=== PATIENT | male | born 1955 | race Caucasian/White ===

== ENCOUNTER 2017-01-19 07:13 | Inpatient (IN) | payer BC, OTHER ==
[~2017-01-19] VITALS: Ht 195.6 cm; Wt 103.9 kg
[2017-01-19 07:15] VITALS: BP_SYST 148
[2017-01-19 07:43] LABS: BASOPHILS # (AUTO) 0.1 K/uL (0.0-0.2); EOSINOPHILS # (AUTO) 0.2 K/uL (0.0-0.4); MEAN CORPUSCULAR HGB CONC 32 % (32-36); MONOCYTES # (AUTO) 0.8 K/uL (0.0-1.0)
[2017-01-19] MEDS ORDERED: ASPIRIN 81 MG TAB.CHEW PO ONE (07:45)
[2017-01-19 07:48] LABS: BASOPHILS % (AUTO) 0.6 % (0.0-2.0); HEMATOCRIT 46.2 % (36-54); HEMOGLOBIN 14.9 g/dL (14.0-18.0); LYMPHOCYTES # (AUTO) 2.7 K/uL (1.0-5.5); LYMPHOCYTES % (AUTO) 26.7 % (20.5-51.5); MEAN CORPUSCULAR HEMOGLOBIN 28 pg (27-31); MEAN CORPUSCULAR VOLUME 87 fL (79.0-98.0); MONOCYTES % (AUTO) 8.1 % (1.7-9.3); NEUTROPHILS # (AUTO) 6.2 K/uL (1.8-7.7); NEUTROPHILS % (AUTO) 62.6 % (40.0-70.0); PLATELET COUNT (AUTO) 249 K/uL (130-430); RED BLOOD CELL COUNT(AUTO) 5.31 MIL/uL (4.2-6.2); RED CELL DISTRIBUTION WIDTH 13.7 % (9.0-15.0)
[2017-01-19 07:49] LABS: ANION GAP 6 (5-15); CALCIUM 9.4 mg/dL (8.4-11.0); CHLORIDE 106 mmol/L (98-107); CREATININE 1.13 mg/dL (0.55-1.30); GLUCOSE 125 mg/dL (70-99); POTASSIUM 4.4 mmol/L (3.5-5.1); SODIUM SERUM 142 mmol/L (136-145); UREA NITROGEN, BLOOD 19 mg/dL (8-21)
[2017-01-19 07:50] LABS: GFR AFRICAN AMERICAN 84 mL/min (>90)
[2017-01-19 07:51] LABS: PROTHROMBIN TIME 10.9 SECS (9.5-12.5)
[2017-01-19 07:57] LABS: ALANINE AMINOTRANSFERASE 20 U/L (12-78); ALBUMIN 4.2 g/dL (3.4-4.8); ASPARTATE AMINOTRANSFERASE 18 U/L (10-37)
[2017-01-19] MEDS ORDERED: LORA-843 PO (09:19)
[2017-01-19] MEDS ORDERED: GLU500 PO (09:19)
[2017-01-19] MEDS ORDERED: ATEN50TA PO (09:19)
[2017-01-19 09:38] VITALS: BP_SYST 113
[2017-01-19 09:40] VITALS: BP_SYST 113
[2017-01-19] MEDS ORDERED: ASPIRIN 325 MG TABLET (ECOTRIN) PO ONE (10:45)
[2017-01-19] MEDS ORDERED: DEXTROSE 50% JECT 50 ML DISP.SYRIN IVP PRN (10:45)
[2017-01-19] MEDS ORDERED: ATENOLOL 50 MG TABLET (TENORMIN) PO SCH (10:45)
[2017-01-19] MEDS ORDERED: ATENOLOL 50 MG TABLET (TENORMIN) PO ONE (10:45)
[2017-01-19] MEDS ORDERED: INSULIN REGULAR, HUMAN 100 UNITS/ML, 10 ML VIAL (novoLIN R) SUBCUT PRN (10:45)
[2017-01-19] MEDS ORDERED: ASPIRIN 325 MG TABLET (ECOTRIN) PO SCH (10:45)
[2017-01-19 11:29] LABS: CHOLESTEROL 149 mg/dL (<200); HDL CHOLESTEROL 35 mg/dL (>45); LDL CHOLESTEROL 99 mg/dL (<100); TRIGLYCERIDES 106 mg/dL (30-150)
[2017-01-19 16:33] VITALS: BP_SYST 132
[2017-01-19 19:42] VITALS: BP_SYST 125
[2017-01-19 23:33] VITALS: BP_SYST 138
[2017-01-20 03:33] VITALS: BP_SYST 135
[2017-01-20 08:00] VITALS: BP_SYST 140
[2017-01-20] MEDS ORDERED: metFORMIN HCL 500 MG TABLET PO SCH (09:00)
[2017-01-20] MEDS ORDERED: ASPIRIN 325 MG TABLET (ECOTRIN) PO SCH (09:00)
[2017-01-20] MEDS ORDERED: ATENOLOL 50 MG TABLET (TENORMIN) PO SCH (09:00)
[2017-01-20 11:56] VITALS: BP_SYST 140
== END 2017-01-20 12:20 | disposition home or self-care (01) | DRG 392 ==
LOC: SED 07:13 → STU 09:08
PROVIDERS: ADMIT Internal Medicine Hospice and Palliative Medicine; ATTEND Internal Medicine Hospice and Palliative Medicine
DX: K21.9 Gastro-esophageal reflux disease without esophagitis (principal); I10 Essential (primary) hypertension; F17.200 Nicotine dependence, unspecified, uncomplicated; E11.9 Type 2 diabetes mellitus without complications; Z82.49 Family history of ischemic heart disease and other diseases of the circulatory system
CPT/HCPCS: 36415; 71010; 80053; 80061; 82962; 83036; 83880; 84484; 85025; 85379; 85610-TC; 93005; 99285; J1815

== ENCOUNTER 2018-08-07 10:51 | Emergency (ER) | payer OTHER ==
[~2018-08-07] VITALS: Ht 195.6 cm; Wt 102.5 kg
[~2018-08-07 10:51] MED LIST: ATEN50TA PO; GLU500 PO; LORA-843 PO
[2018-08-07 11:07] VITALS: BP_SYST 155
[2018-08-07] MEDS ORDERED: NACL 0.9% 1,000 ML IV ONE (11:12)
[2018-08-07] MEDS: ONDANSETRON HCL 4 MG/2 ML VIAL IVP ONE ×2 (11:31→11:38)
[2018-08-07] MEDS: MORPHINE 4 MG/ML INJ. SYRINGE IVP ONE ×2 (11:32→11:39)
[2018-08-07 11:52] LABS: BILIRUBIN,URINE NEGATIVE (NEGATIVE); BLOOD, URINE NEGATIVE (NEGATIVE); CLARITY/URINE CLEAR (CLEAR); COLOR,URINE YELLOW (YELLOW); GLUCOSE,URINE NEGATIVE (NEGATIVE); KETONES,URINE NEGATIVE (NEGATIVE); LEUKOCYTE ESTERASE ,URINE NEGATIVE (NEGATIVE); NITRITE, URINE NEGATIVE (NEGATIVE); PROTEIN URINE NEGATIVE (NEGATIVE); UROBILINOGEN,URINE 0.2 (0.2-1.0)
[2018-08-07 11:58] LABS: HEMATOCRIT 43.9 % (36-54); HEMOGLOBIN 14.4 g/dL (14.0-18.0); RED BLOOD CELL COUNT(AUTO) 4.83 MIL/uL (4.2-6.2); WHITE BLOOD COUNT (AUTO) 8.9 K/uL (4.8-10.8)
[2018-08-07 11:59] LABS: BASOPHILS % (AUTO) 0.6 % (0.0-2.0); EOSINOPHILS # (AUTO) 0.2 K/uL (0.0-0.4); EOSINOPHILS % (AUTO) 2.6 % (0.0-4.0); LYMPHOCYTES # (AUTO) 2.8 K/uL (1.0-5.5); LYMPHOCYTES % (AUTO) 31.8 % (20.5-51.5); MEAN CORPUSCULAR HEMOGLOBIN 30 pg (27-31); MEAN CORPUSCULAR HGB CONC 33 % (32-36); MEAN CORPUSCULAR VOLUME 91 fL (79.0-98.0); MONOCYTES # (AUTO) 0.7 K/uL (0.0-1.0); MONOCYTES % (AUTO) 7.6 % (1.7-9.3); NEUTROPHILS # (AUTO) 5.1 K/uL (1.8-7.7); NEUTROPHILS % (AUTO) 57.4 % (40.0-70.0); PLATELET COUNT (AUTO) 225 K/uL (130-430)
[2018-08-07 12:04] LABS: PROTHROMBIN TIME 10.4 SECS (9.5-12.5)
[2018-08-07 12:09] LABS: POTASSIUM 3.8 mmol/L (3.5-5.1)
[2018-08-07 12:10] LABS: CALCIUM 9.1 mg/dL (8.4-11.0); CREATININE 1.03 mg/dL (0.55-1.30)
[2018-08-07 12:15] LABS: TOTAL BILIRUBIN 0.7 mg/dL (0.0-1.0)
[2018-08-07 14:30] VITALS: BP_SYST 155
== END 2018-08-07 19:00 | disposition home or self-care (01) ==
LOC: SED 10:51
DX: K42.9 Umbilical hernia without obstruction or gangrene (principal); E11.9 Type 2 diabetes mellitus without complications; R03.0 Elevated blood-pressure reading, without diagnosis of hypertension; Z79.899 Other long term (current) drug therapy
CPT/HCPCS: 36415; 71045; 74176; 80053; 81003; 82150; 82550; 83605; 84484; 83690; 85025; 85610; 85730; 87040; 93005; 99284; J2270; J2405; J7030

== ENCOUNTER 2018-09-10 10:01 | Emergency (ER) | payer OTHER ==
[~2018-09-10] VITALS: Ht 198.1 cm; Wt 104.3 kg
[2018-09-10 10:06] VITALS: BP_SYST 150
[2018-09-10 10:53] LABS: BASOPHILS # (AUTO) 0.1 K/uL (0.0-0.2); BASOPHILS % (AUTO) 0.9 % (0.0-2.0); EOSINOPHILS # (AUTO) 0.2 K/uL (0.0-0.4); EOSINOPHILS % (AUTO) 2.1 % (0.0-4.0); HEMATOCRIT 44.2 % (36-54); HEMOGLOBIN 14.5 g/dL (14.0-18.0); LYMPHOCYTES # (AUTO) 2.7 K/uL (1.0-5.5); LYMPHOCYTES % (AUTO) 33.1 % (20.5-51.5); MEAN CORPUSCULAR HEMOGLOBIN 30 pg (27-31); MEAN CORPUSCULAR HGB CONC 33 % (32-36); MEAN CORPUSCULAR VOLUME 91 fL (79.0-98.0); MONOCYTES # (AUTO) 0.7 K/uL (0.0-1.0); MONOCYTES % (AUTO) 8.9 % (1.7-9.3); NEUTROPHILS # (AUTO) 4.5 K/uL (1.8-7.7); PLATELET COUNT (AUTO) 233 K/uL (130-430); RED BLOOD CELL COUNT(AUTO) 4.84 MIL/uL (4.2-6.2); RED CELL DISTRIBUTION WIDTH 13.9 % (9.0-15.0); WHITE BLOOD COUNT (AUTO) 8.2 K/uL (4.8-10.8)
[2018-09-10 11:04] LABS: CALCIUM 9.4 mg/dL (8.4-11.0); POTASSIUM 4.2 mmol/L (3.5-5.1)
[2018-09-10 11:08] LABS: PROTHROMBIN TIME 10.5 SECS (9.5-12.5)
[2018-09-10 11:09] LABS: ALBUMIN 3.9 g/dL (3.4-4.8); TOTAL BILIRUBIN 1.4 mg/dL (0.0-1.0)
[2018-09-10 11:30] VITALS: BP_SYST 120
== END 2018-09-10 11:30 | disposition home or self-care (01) ==
LOC: SED 10:01
DX: S56.912A Strain of unspecified muscles, fascia and tendons at forearm level, left arm, initial encounter (principal); R03.0 Elevated blood-pressure reading, without diagnosis of hypertension; E11.9 Type 2 diabetes mellitus without complications; Z86.79 Personal history of other diseases of the circulatory system; Z79.899 Other long term (current) drug therapy; X50.0XXA Overexertion from strenuous movement or load, initial encounter; Y93.89 Activity, other specified; Y92.89 Other specified places as the place of occurrence of the external cause; Y99.8 Other external cause status
CPT/HCPCS: 36415; 71045; 80053; 82550-TC; 84484; 85025; 85610-TC; 85730-TC; 93005; 99284

== ENCOUNTER 2018-09-11 21:03 | Emergency (ER) | payer OTHER ==
[~2018-09-11] VITALS: Ht 165.1 cm; Wt 104.3 kg
[2018-09-11 21:05] VITALS: BP_SYST 159
--- NOTE | 2018-09-11 21:05 | NUR ---
Placed in room 1 . Placed on quality assurance monitor body, blood pressure machine and pulse oximeter. To gown for exam. Side rails up. Report given to GLENDA TAVAREZ.
--- NOTE | 2018-09-11 21:05 | NUR ---
Pt c/o C/P with nausea, dizziness and racind heart while he was playing "Tug-of-war" with his dog. Pt presently denies C/P or SOB, no dizziness or nausa. Pt states that he was recently dx with a clogged artery and is scheduled for a stent placement with [facility] on 09/15/2018.
[2018-09-11] MEDS ORDERED: NACL 0.9% 1,000 ML IV ONE (21:07)
--- NOTE | 2018-09-11 21:10 | NUR ---
Note undone in EDM - 09/11/18 at 2211 by [email or web address] # 18 gauge angiocath placed to rt ac. Use of asceptic technique. Opsite placed over site. Blood return noted. Blood for lab drawn from site. Flushed with 10 cc of normal saline. No evidence of infiltration noted. Patient tolerated well.
[2018-09-11] MEDS ORDERED: ASPIRIN 81 MG TAB.CHEW PO ONE (21:15)
--- NOTE | 2018-09-11 21:19 | NUR ---
ER at bedside examining patient.
[2018-09-11 21:22] LABS: BASOPHILS # (AUTO) 0.1 K/uL (0.0-0.2); BASOPHILS % (AUTO) 1.1 % (0.0-2.0); EOSINOPHILS # (AUTO) 0.2 K/uL (0.0-0.4); HEMATOCRIT 42.9 % (36-54); HEMOGLOBIN 14.3 g/dL (14.0-18.0); LYMPHOCYTES # (AUTO) 3.8 K/uL (1.0-5.5); MEAN CORPUSCULAR HEMOGLOBIN 30 pg (27-31); MEAN CORPUSCULAR HGB CONC 33 % (32-36); MEAN CORPUSCULAR VOLUME 91 fL (79.0-98.0); MONOCYTES # (AUTO) 1.1 K/uL (0.0-1.0); MONOCYTES % (AUTO) 8.8 % (1.7-9.3); NEUTROPHILS # (AUTO) 6.7 K/uL (1.8-7.7); NEUTROPHILS % (AUTO) 56.1 % (40.0-70.0); PLATELET COUNT (AUTO) 254 K/uL (130-430); RED BLOOD CELL COUNT(AUTO) 4.74 MIL/uL (4.2-6.2); RED CELL DISTRIBUTION WIDTH 13.7 % (9.0-15.0)
[2018-09-11 21:36] LABS: ANION GAP 12 (5-15); CHLORIDE 103 mmol/L (98-107); GFR AFRICAN AMERICAN 86 mL/min (>90); GLUCOSE 171 mg/dL (70-99); POTASSIUM 3.7 mmol/L (3.5-5.1); SODIUM SERUM 139 mmol/L (136-145); UREA NITROGEN, BLOOD 26 mg/dL (8-21)
[2018-09-11 21:40] LABS: PROTHROMBIN TIME 10.4 SECS (9.5-12.5)
[2018-09-11 21:45] LABS: ALANINE AMINOTRANSFERASE 52 U/L (12-78); ALBUMIN 3.9 g/dL (3.4-4.8); ASPARTATE AMINOTRANSFERASE 28 U/L (10-37); TOTAL BILIRUBIN 0.8 mg/dL (0.0-1.0)
--- NOTE | 2018-09-11 22:00 | NUR ---
AAOx4, denies c/o C/P or SOB, no needs verbalized. VSS. Family members at bedside.
--- NOTE | 2018-09-11 23:03 | NUR ---
Lab at bedside.
[2018-09-12 00:08] VITALS: BP_SYST 130
== END 2018-09-12 00:08 | disposition home or self-care (01) ==
LOC: SED 21:03
DX: R07.89 Other chest pain (principal); E11.9 Type 2 diabetes mellitus without complications; Z86.79 Personal history of other diseases of the circulatory system; Z79.899 Other long term (current) drug therapy
CPT/HCPCS: 36415; 71045; 80053; 84484; 85025; 85610; 85730; 93005; 99284; J7030

== ENCOUNTER 2020-12-07 18:50 | Emergency (ER) | payer OTHER, BC ==
[~2020-12-07] VITALS: Ht 195.6 cm; Wt 102.1 kg
[2020-12-07 19:14] VITALS: BP_SYST 152
[2020-12-07] MEDS ORDERED: HYDR-3917 PO ×2 (20:21→20:31)
[2020-12-07 20:32] VITALS: BP_SYST 152
== END 2020-12-07 20:32 | disposition home or self-care (01) ==
LOC: SED 18:50
DX: S92.354A Nondisplaced fracture of fifth metatarsal bone, right foot, initial encounter for closed fracture (principal); I10 Essential (primary) hypertension; E11.9 Type 2 diabetes mellitus without complications; Z79.899 Other long term (current) drug therapy; X50.1XXA Overexertion from prolonged static or awkward postures, initial encounter; Y93.89 Activity, other specified; Y92.89 Other specified places as the place of occurrence of the external cause; Y99.8 Other external cause status
CPT/HCPCS: 99284